=== PATIENT | female | born 1965 | race Caucasian/White ===

== ENCOUNTER 2016-10-28 14:00 | Outpatient (RCR) | payer OTHER ==
[2012-02-01 21:30] VITALS: BP 139/65
[~2016-10-28 14:00] MED LIST: CLOBETASOL PROP0.055 TP; DILTIAZEM HYDR180 MG PO; FORTAMET1000 MG PO; FORTAMET500 MG PO; HCTZ 25MG25 MG PO; INDOMETHACIN50 MG PO; LIPITOR20 MG PO; METHIMAZOLE10 MG PO; ONGLYZA5 MG PO; ULTRAM50 MG PO; ZESTRIL10 MG PO
== END 2016-11-16 08:00 | disposition home or self-care (01) ==
LOC: PT 14:00
DX: Z47.89 Encounter for other orthopedic aftercare (principal)

== ENCOUNTER → 2018-02-24 | Outpatient (CLI) | payer OTHER ==
[2012-02-01 21:30] VITALS: BP 139/65
== END ==
LOC: MAMMO 10:34
DX: Z12.31 Encounter for screening mammogram for malignant neoplasm of breast (principal)

== ENCOUNTER 2018-04-05 15:57 | Emergency (ER) | payer OTHER ==
[~2018-04-05 15:57] MED LIST changes: +LIPITOR 10M10 MG/TAB PO; -LIPITOR20 MG PO
[2018-04-05] MEDS ORDERED: GLIMEPIRIDE4 MG PO (16:23)
[2018-04-05] MEDS ORDERED: DHA PO (16:25)
[2018-04-05] MEDS ORDERED: LEVOTHYROXINE0.05 MG PO (16:25)
[2018-04-05] MEDS ORDERED: VITAMIN D31000 I1 (16:26)
[2018-04-05] MEDS ORDERED: ACETAMINOPHEN-H1 TA2 PO (16:29)
[2018-04-05] MEDS ORDERED: CEPHALEXIN500 M1 PO (16:49)
[2018-04-05 17:18] VITALS: BP 104/54
== END 2018-04-05 17:18 | disposition home or self-care (01) ==
LOC: ED 15:57
DX: L03.116 Cellulitis of left lower limb (principal); E11.9 Type 2 diabetes mellitus without complications; Z79.84 Long term (current) use of oral hypoglycemic drugs; F17.200 Nicotine dependence, unspecified, uncomplicated; I10 Essential (primary) hypertension

== ENCOUNTER → 2018-11-07 | Outpatient (CLI) | payer OTHER ==
[~2018-11-07] MED LIST changes: +ACETAMINOPHEN-H1 TA2 PO; +CEPHALEXIN500 M1 PO; +DHA PO; +GLIMEPIRIDE4 MG PO; +LEVOTHYROXINE0.05 MG PO; +VITAMIN D31000 I1
[2018-11-07 12:51] LABS: EOS # 0.2 (0.04-0.40); EOS % 2.7 % (1.0-5.0); HEMATOCRIT 38.9 % (37.0-47.0); HEMOGLOBIN 12.5 g/dL (12.5-16.0); LYMPH# 2.4 (1.50-4.00); MEAN CELL VOLUME 87 fl (78-100); MEAN CORPUSCULAR HEMOGLOBIN 28 pg (27-31); MEAN CORPUSCULAR HGB CONC 32 g/dL (33-37); MEAN PLATELET VOLUME 10.1 fl (7.4-10.4); MONO # 0.7 (0.20-0.80); NEU # 5.1 (1.40-6.50); PLATELET COUNT 354 K/mm3 (130-400); RED BLOOD COUNT 4.49 M/mm3 (4.10-5.30); WHITE BLOOD COUNT 8.4 K/mm3 (4.8-10.8)
[2018-11-07 13:04] LABS: ALBUMIN 4.6 g/dL (3.5-5.0); CALCIUM 10.1 mg/dL (8.4-10.2); POTASSIUM 3.7 mmol/L (3.6-5.0); TOTAL BILIRUBIN 0.6 mg/dL (0.2-1.3); TOTAL PROTEIN 7.9 g/dL (6.3-8.2)
[2018-11-07 15:04] LABS: ERYTHROCYTE SEDIMENTATION RATE 29 mm/hr (0-30)
== END ==
LOC: LAB 12:22
PROVIDERS: Nurse Practitioner
DX: M17.12 Unilateral primary osteoarthritis, left knee (principal); M23.92 Unspecified internal derangement of left knee

== ENCOUNTER → 2021-11-12 | Outpatient (CLI) | payer OTHER | LOC: MAMMO 11:00 | DX: Z12.31 Encounter for screening mammogram for malignant neoplasm of breast (principal) ==

== ENCOUNTER 2024-03-04 20:25 | Emergency (ER) | payer BC ==
[~2024-03-04 20:25] MED LIST changes: +AMITRIPTYLINE H25 M2 PO; +CLEOCIN HCL300 MG PO; +DEXAMETHAS PO; +Famotidine 20 MG TAB PO ONE; +LIDOCAINE HCL100 M2 MM; +MAGNESIUM100 M1 PO; +Nitrofurantoin (Mono/Macro) 100 MG CAPSULE PO ONE; +methylPREDNISolone Sod Succ 125 MG/2 ML VIAL IV ONE
== END 2024-03-04 22:17 | disposition home or self-care (01) ==
LOC: ED
DX: N39.0 Urinary tract infection, site not specified (principal); T78.40XA Allergy, unspecified, initial encounter; X58.XXXA Exposure to other specified factors, initial encounter
CPT/HCPCS: J2919